=== PATIENT | male | born 1980 | race Caucasian/White ===

== ENCOUNTER 2016-07-01 09:23 | Emergency (ER) | payer OTHER ==
[2016-07-01 10:47] LABS: Hematocrit 50 % (42-52); Hemoglobin 17.3 g/dl (14.0-18.0); Mean Corpuscular HGB Conc 34 g/dl (31-36); Mean Corpuscular Hemoglobin 32 pg (27-31); Mean Corpuscular Volume 92 fL (80-94); Mean Platelet Volume 7 um3 (7.4-10.4); Red Blood Count 5.49 10^6/ul (4.0-5.4); Red Cell Distribution Width 13 % (10.5-15); White Blood Count 8.8 10^3/ul (3.5-10.8)
[2016-07-01 10:50] LABS: Urine Bilirubin Negative (Negative); Urine Glucose Negative (Negative); Urine Nitrite Negative (Negative)
[2016-07-01 11:03] LABS: Albumin 4.2 g/dL (3.2-5.2); BUN/Creatinine Ratio 12.5 (8-20); Calcium 9.8 mg/dL (8.6-10.3); EGFR African American 126.7 (>60); EGFR Non-African American 98.6 (>60); Potassium 4.3 mmol/L (3.5-5.0); Total Bilirubin 1.2 mg/dL (0.2-1.0); Total Protein 7.2 g/dL (6.4-8.9)
[2016-07-01 12:04] LABS: C Reactive Protein 2.99 mg/L (< 5.00); Magnesium 1.8 mg/dL (1.9-2.7)
[2016-07-01 12:35] VITALS: BP 118/54
--- NOTE | 2016-07-01 17:36 | ED ---
luis a Gimenez Timothy, scribed for Norman Snow MD on 07/01/16 at 1010 . Neurological HPI - HPI Summary HPI Summary: Lexa Lugo is a 36 yo male presenting to [facility] with disorientation. Pt woke at [id number] and "felt intoxicated" with disorientation. He states he would forget what he was doing and the reason he was doing it. He states he has a Hx of similar Sx over the past year, but not to the magnitude he felt this morning. He is not in any current pain. His Sx are not aggravated by changes in position, and he does not feel like the room is spinning. At 1000 today he states his Sx have almost completely resolved. He saw his PCP for these Sx 5 months ago, but never had a full work up. His MHx includes seizures, testicular CA, chronic right shoulder pain, anxiety, panic disorder, tobacco use. - History of Current Complaint Chief Complaint: EDDizziness Stated Complaint: GENERAL ILLNESS Time Seen by Provider: 07/01/16 09:57 Hx Obtained From: Patient Onset/Duration: Sudden Onset, Resolved Timing: Constant Onset Severity: Moderate Current Severity: Moderate Pain Intensity: 0 Pain Scale Used: 0-10 Numeric Character: Other: - disoriented Aggravating: Nothing Alleviating: Spontanious Resolution - Allergy/Home Medications Allergies/Adverse Reactions: Allergies Allergy/AdvReac Type Severity Reaction Status Date / Time No Known Allergies Allergy Verified 07/27/15 09:16 Home Medications: Home Medications Alprazolam 0.5 mg PO BID 07/01/16 [History Confirmed 07/01/16] Oxycodone HCl 5 mg PO TID 07/01/16 [History Confirmed 07/01/16] PMH/Surg Hx/FS Hx/Imm Hx Endocrine/Hematology History: Denies: Hx Anticoagulant Therapy, Hx Diabetes, Hx Thyroid Disease Cardiovascular History: Denies: Hx Congestive Heart Failure, Hx Deep Vein Thrombosis, Hx Hypertension , Hx Myocardial Infarction, Hx Pacemaker/ICD Respiratory History: Denies: Hx Asthma, Hx Chronic Obstructive Pulmonary Disease (COPD), Hx Lung Cancer, Hx Pneumonia, Hx Pulmonary Embolism GI History: Denies: Hx Gall Bladder Disease, Hx Gastrointestinal Bleed, Hx Ulcer, Hx Urosepsis History: Denies: Hx Kidney Stones, Hx Renal Disease Sensory History: Denies: Hx Hearing Aid Neurological History: Reports: Hx Seizures - since age 15. Denies: Hx Dementia, Hx Migraine, Hx Transient Ischemic Attacks (TIA) Psychiatric History: Reports: Hx Anxiety Denies: Hx Depression, Hx Panic Disorder, Hx Schizophrenia, Hx Bipolar Disorder - Cancer History Cancer Type, Location and Year: TESTICULAR CANCER 2005 - Surgical History Surgery Procedure, Year, 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 Right shoulder surgery Dec 2014 - Immunization History Date of Tetanus Vaccine: UTD Date of Influenza Vaccine: NO Infectious Disease History: No Infectious Disease History: Denies: Hx Clostridium Difficile, Hx Hepatitis, Hx Human Immunodeficiency Virus (HIV), Hx of Known/Suspected MRSA, Hx Shingles, Hx Tuberculosis, Hx Known/ Suspected VRE, Hx Known/Suspected VRSA, History Other Infectious Disease, Traveled Outside the [place] in Last 30 Days - Family History Known Family History: Positive: Hypertension Negative: Cardiac Disease, Diabetes - Social History Alcohol Use: Occasionally Substance Use Type: Reports: None Smoking Status (MU): Current Every Day Smoker Type: Cigarettes Amount Used/How Often: socially Have You Smoked in the Last Year: Yes Review of Systems Constitutional: Negative Eyes: Negative ENT: Negative Cardiovascular: Negative Respiratory: Negative Gastrointestinal: Negative Genitourinary: Negative Musculoskeletal: Negative Skin: Negative Neurological: Other - disorientation Psychological: Normal All Other Systems Reviewed And Are Negative: Yes Physical Exam - Summary Physical Exam Summary: The patient is well-nourished in no acute distress and in no acute pain. The skin is warm and dry and skin color reflects adequate perfusion. HEENT: The head is normocephalic and atraumatic. The pupils are equal and reactive. The conjunctivae are clear and without drainage. Nares are patent and without drainage. Mouth reveals moist mucous membranes and the throat is without erythema and exudate. No enlarged thyroid. The external ears are intact. The ear canals are patent and without drainage. The tympanic membranes are intact. Neck is supple with full range of motion and non-tender. There are no carotid bruits. There is no neck vein distension. Respiratory: Chest is non-tender. Lungs are clear to auscultation and breath sounds are symmetrical and equal. Cardiovascular: Hear is regular rate and rhythm. There is no murmur or rub auscultated. There is no peripheral edema and pulses are symmetrical and equal. Abdomen: The abdomen is soft and non-tender. There are normal bowel sounds heard in all four quadrants and there is no organomegaly palpated. Musculoskeletal: There is no back pain noted. Extremities are non-tender with full range of motion. There is good capillary refill. There is no peripheral edema or calf tenderness elicited. Neurological: Patient is alert and oriented to person, place and time. The patient has symmetrical motor strength in all four extremities. Cranial nerves are grossly intact. Deep tendon reflexes are symmetrical and equal in all four extremities. Psychiatric: The patient has an appropriate affect and does not exhibit any anxiety or depression. Triage Information Reviewed: Yes Vital Signs On Initial Exam: Initial Vitals Temp Pulse Resp BP Pulse Ox 97.7 F 69 20 156/90 94 07/01/16 09:29 07/01/16 09:29 07/01/16 09:29 07/01/16 09:29 07/01/16 09:29 Vital Signs Reviewed: Yes - [place] Coma Scale Coma Scale Total: 15 Diagnostics - Vital Signs Vital Signs Temp Pulse Resp BP Pulse Ox 07/01/16 09:29 97.7 F 69 20 156/90 94 - Laboratory Lab Results: Lab Results 07/01/16 07/01/16 07/01/16 Range/Units 10:27 10:27 10:27 WBC 8.8 (3.5-10.8) 10^3/ul RBC 5.49 H (4.0-5.4) 10^6/ul Hgb 17.3 (14.0-18.0) g/dl Hct 50 (42-52) % MCV 92 (80-94) fL MCH 32 H (27-31) pg MCHC 34 (31-36) g/dl RDW 13 (10.5-15) % Plt Count 217 (150-450) 10^3/ul MPV 7 L (7.4-10.4) um3 Neut % (Auto) 66.1 (38-83) % Lymph % (Auto) 23.8 L (25-47) % [place] % (Auto) 8.7 (1-9) % Eos % (Auto) 0.8 (0-6) % Baso % (Auto) 0.6 (0-2) % Absolute Neuts (auto) 5.8 (1.5-7.7) 10^3/ul Absolute Lymphs (auto) 2.1 (1.0-4.8) 10^3/ul Absolute Monos (auto) 0.8 (0-0.8) 10^3/ul Absolute Eos (auto) 0.1 (0-0.6) 10^3/ul Absolute Basos (auto) 0.1 (0-0.2) 10^3/ul Absolute Nucleated RBC 0.01 10^3/ul Nucleated RBC % 0.1 Sodium 137 (133-145) mmol/L Potassium 4.3 (3.5-5.0) mmol/L Chloride 102 (101-111) mmol/L Carbon Dioxide 27 (22-32) mmol/L Anion Gap 8 (2-11) mmol/L BUN 11 (6-24) mg/dL Creatinine 0.88 (0.67-1.17) mg/dL Est GFR ( Amer) 126.7 (>60) Est GFR (Non-Af Amer) 98.6 (>60) BUN/Creatinine Ratio 12.5 (8-20) Glucose 87 (70-100) mg/dL Calcium 9.8 (8.6-10.3) mg/dL Magnesium 1.8 L (1.9-2.7) mg/dL Total Bilirubin 1.20 H (0.2-1.0) mg/dL AST 23 (13-39) U/L ALT 29 (7-52) U/L Alkaline Phosphatase 48 (34-104) U/L C-Reactive Protein 2.99 (< 5.00) mg/L Total Protein 7.2 (6.4-8.9) g/dL Albumin 4.2 (3.2-5.2) g/dL Globulin 3.0 (2-4) g/dL Albumin/Globulin Ratio 1.4 (1-3) TSH 1.00 (0.34-5.60) mcIU/mL Urine Color Straw Urine Appearance Clear Urine pH 6.0 (5-9) Ur Specific Gilbert 1.004 L (1.010-1.030) Urine Protein Negative (Negative) Urine Ketones Negative (Negative) Urine Blood Negative (Negative) Urine Nitrate Negative (Negative) Urine Bilirubin Negative (Negative) Urine Urobilinogen Negative (Negative) Ur Leukocyte Esterase Negative (Negative) Urine Glucose Negative (Negative) Valproic Acid 71.0 (50-100) mcg/mL Result Diagrams: 07/01/16 10:27 07/01/16 10:27 Lab Statement: Any lab studies that have been ordered have been reviewed, and results considered in the medical decision making process. Re-Evaluation - Re-Evaluation First Eval Re-Evaluation Time: 12:42 Change: Unchanged Comment: Pt is aware of current course of Tx, particularly follow up involving a glucose tolerance test. Course/Dx - Course Assessment/Plan: Lexa Lugo is a 36 yo male presenting to [facility] with disorientation as of 0730 this morning, resolved by 1000, with a Hx of similar Sx over the past year, not as bad as this morning. Pt was counseled that his Sx could be due in part to his high blood pressure. Note his BP is 156/90 in room. Pt will receieve a 2 hour glucose tolerance test and a fasting lipid profile. After clinical examination and review of his lab studies, he will be discharged with out-patient follow up with a Dx of confusion and disorientation with appropriate instructions. - Differential Dx Differential Diagnoses Neuro: Positive: Hypertension, Hypoglycemia, Metabolic Abnormality, Other - confusion and disorientation - Diagnoses Provider Diagnoses: Confusion and disorientation Discharge - Discharge Plan Condition: Stable Disposition: HOME Patient Education Materials: Near Syncope (ED) Referrals: Gabo Smith MD [Primary Care Provider] - 2 Days Additional Instructions: Please follow up with the lab as discussed earlier. You will have appropriate prescriptions for your glucose tolerance test and fasting lipid profile. The number you should call is [phone]. We also recommend you follow up with your primary care physician. Return to the emergency department with any new or recurring symptoms. The documentation as recorded by the luis a busch Timothy accurately reflects the service I personally performed and the decisions made by me, Norman Snow MD.
== END 2016-07-01 12:57 | disposition home or self-care (01) ==
LOC: ED 09:23
DX: R41.0 Disorientation, unspecified (principal)
CPT/HCPCS: 36415; 80053; 80164; 81003; 83735; 84443; 85025; 86140; 99283

== ENCOUNTER 2016-12-22 08:31 | Emergency (ER) | payer OTHER ==
[2016-12-22 08:41] VITALS: BP 139/84
[2016-12-22] MEDS ORDERED: Ketorolac INJ* 60 MG/2 ML VIAL IM ONE (08:52)
--- NOTE | 2016-12-22 09:04 | UC ---
Dental HPI - HPI Summary HPI Summary: Pt presents with c/o sudden onset right lower jaw/tooth pain and swelling denies injury or trauma. Also, c/o sudden onset low back pain, muscle spasm both c/o began two days ago. denies injury, trauma, fever, chills numbness, - History of Current Complaint Chief Complaint: UCDentalProblem Stated Complaint: TOOTH/GUM PAIN Time Seen by Provider: 12/22/16 08:34 Hx Obtained From: Patient Onset/Duration: Sudden Onset, Lasting Days - 2 Severity: Moderate Aggravating Factor(s): Chewing Related History: Swelling - Allergies/Home Medications Allergies/Adverse Reactions: Allergies Allergy/AdvReac Type Severity Reaction Status Date / Time No Known Allergies Allergy Verified 12/22/16 08:41 Home Medications: Home Medications amLODIPine TAB* [Norvasc 5 mg TAB*] 5 mg PO DAILY 12/22/16 [History Confirmed ] tiZANidine TAB* [Zanaflex TAB*] 2 mg PO DAILY 12/22/16 [History Confirmed ] PMH/Surg Hx/FS Hx/Imm Hx Previously Healthy: Yes Other History Of: Negative For: HIV, Hepatitis B, Hepatitis C, Anticoagulant Therapy - Surgical History Surgical History: Yes Surgery Procedure, Year, 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 Right shoulder surgery Dec 2014 - Family History Known Family History: Positive: None, Hypertension Negative: Cardiac Disease, Diabetes - Social History Occupation: Employed Full-time Lives: With Family Alcohol Use: Occasionally Substance Use Type: None Smoking Status (MU): Current Every Day Smoker Type: Cigarettes Amount Used/How Often: socially Have You Smoked in the Last Year: Yes - Immunization History Most Recent Influenza Vaccination: season Review of Systems Constitutional: Negative Skin: Negative Eyes: Negative ENT: Dental Pain Respiratory: Negative Cardiovascular: Negative Gastrointestinal: Negative Genitourinary: Negative Motor: Decreased ROM - low back Neurovascular: Negative Musculoskeletal: Decreased ROM - low back, Myalgia - low back Neurological: Negative Psychological: Negative Is Patient Immunocompromised?: No All Other Systems Reviewed And Are Negative: Yes Physical Exam Triage Information Reviewed: Yes Appearance: Pain Distress Vital Signs: Initial Vital Signs Temp 98.3 F 12/22/16 08:34 Pulse 80 12/22/16 08:34 Resp 16 12/22/16 08:34 BP 139/84 12/22/16 08:34 Pulse Ox 98 12/22/16 08:34 Vital Signs Reviewed: Yes Eye Exam: Normal ENT Exam: Normal Dental Exam: Other - right lower molar/wisdom tooth Dental: Positive: Abscess @ Neck exam: Normal Respiratory Exam: Normal Cardiovascular Exam: Normal Musculoskeletal Exam: Other Musculoskeletal: Positive: ROM Limited @ - low back Neurological Exam: Normal Psychological Exam: Normal Skin Exam: Normal Dental Complaint Course/Dx - Differential Dx/Diagnosis Differential Diagnosis/Dx: Dental Abscess, Other - low back pain Provider Diagnoses: low back pain/spasm. dental abscess Discharge - Discharge Plan Condition: Stable Disposition: HOME Prescriptions: Ibuprofen TAB* [Motrin TAB* 800 MG] 800 mg PO Q8H PRN #21 tab PRN Reason: Pain predniSONE TAB* [Deltasone TAB*] 30 mg PO DAILY #9 tab Patient Education Materials: Dental Abscess (ED), Acute Low Back Pain (ED) Referrals: Gabo Smith MD [Primary Care Provider] - If Needed
== END 2016-12-22 09:09 | disposition home or self-care (01) ==
LOC: UCCORT 08:31
DX: K04.7 Periapical abscess without sinus (principal); M62.830 Muscle spasm of back; F17.210 Nicotine dependence, cigarettes, uncomplicated
CPT/HCPCS: 96372; 99212; G0463; J1885

== ENCOUNTER 2017-01-06 16:34 | Emergency (ER) | payer OTHER ==
[2017-01-06 16:44] VITALS: BP 151/80
--- NOTE | 2017-01-06 16:54 | UC ---
Back Pain HPI - HPI Summary HPI Summary: 36 yo male with the onset of LBP > 1 week ago no relief with motrin or zanaflex or toradol best when he hyperextends back no sciatica no bowel or bladder dysfunction he has had testicular CA - History of Current Complaint Chief Complaint: UCBackPain Stated Complaint: BACK PAIN Time Seen by Provider: 01/06/17 16:53 Hx Obtained From: Patient Onset/Duration: Sudden Onset, Lasting Days Timing: Constant Severity Initially: Severe Severity Currently: Severe Pain Intensity: 8 Pain Scale Used: 0-10 Numeric Back Pain: Is Diffuse Character: Dull, Aching, Throbbing, Spasmodic, Stiffness Aggravating Factor(s): Movement, Bending Alleviating Factor(s): Position Associated Signs And Symptoms: Positive: Negative Related History: Similar Episode Dx As - Allergies/Home Medications Allergies/Adverse Reactions: Allergies Allergy/AdvReac Type Severity Reaction Status Date / Time No Known Allergies Allergy Verified 01/06/17 16:44 Home Medications: Home Medications Famotidine TAB* [Pepcid 20 MG TAB*] 20 mg PO DAILY 01/06/17 [History Confirmed 01/06/17] PMH/Surg Hx/FS Hx/Imm Hx Previously Healthy: Yes Cardiovascular History: Hypertension Other History Of: Negative For: HIV, Hepatitis B, Hepatitis C, Anticoagulant Therapy - Surgical History Surgical History: Yes Surgery Procedure, Year, 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 Right shoulder surgery Dec 2014 - Family History Known Family History: Positive: None, Hypertension Negative: Cardiac Disease, Diabetes - Social History Alcohol Use: None Substance Use Type: None Smoking Status (MU): Current Every Day Smoker Type: Cigarettes Amount Used/How Often: socially Have You Smoked in the Last Year: Yes - Immunization History Most Recent Influenza Vaccination: season Review of Systems Constitutional: Negative Skin: Negative Eyes: Negative ENT: Negative Respiratory: Negative Cardiovascular: Negative Gastrointestinal: Negative Genitourinary: Negative Motor: Negative Neurovascular: Negative Musculoskeletal: Myalgia Neurological: Negative Psychological: Negative Is Patient Immunocompromised?: No All Other Systems Reviewed And Are Negative: Yes Physical Exam Triage Information Reviewed: Yes Appearance: Well-Appearing, Well-Nourished, Pain Distress Vital Signs: Initial Vital Signs Temp 98.0 F 01/06/17 16:37 Pulse 78 01/06/17 16:37 Resp 20 11/13/17 16:37 BP 151/80 01/06/17 16:37 Pulse Ox 98 01/06/17 16:37 Vital Signs Reviewed: Yes Eyes: Positive: Conjunctiva Clear ENT: Positive: Hearing grossly normal. Negative: Nasal congestion, Nasal drainage, Trismus, Muffled voice Neck: Positive: Supple, Nontender Respiratory: Positive: Lungs clear, Normal breath sounds, No respiratory distress Cardiovascular: Positive: RRR, No Murmur Musculoskeletal: Positive: ROM Intact, No Edema Neurological: Positive: Alert, Other: - (-) SLR, DTRs brisk and symmetrical Psychological Exam: Normal Psychological: Positive: Normal Response To Family Skin Exam: Normal Diagnostics - Radiology No standard instances Xray Interpretation: Positive (See Comments) - L5-S1 degenerative spondylosis and facet joint osteoarthritis Radiology Interpretation Completed By: Radiologist Back Pain Course/Dx - Differential Dx/Diagnosis Provider Diagnoses: acute lumbar myofascial strain/spasm Discharge - Discharge Plan Condition: Stable Disposition: HOME Prescriptions: Cyclobenzaprine TAB* [Flexeril TAB*] 5 mg PO TID PRN #12 tab PRN Reason: Spasms Naproxen Sodium [Naproxen Sodium 500 MG TAB] 500 mg PO BID PRN #30 tab PRN Reason: Pain oxyCODONE/Acetamin 5/325 MG* [Percocet 5/325 TAB*] 1 tab PO Q4H PRN #10 tab MDD 2 PRN Reason: Pain Patient Education Materials: Low Back Strain (ED) Referrals: Gabo Smith MD [Primary Care Provider] - 4 Days Additional Instructions: pt consult don't take muscle relaxer or narcotic and drive
--- NOTE | 2017-01-06 17:58 | RAD ---
Indication: 1 week low back pain following standing up. Decreased range of motion. History of testicular cancer. Comparison: November 20, 2007 CT. Technique: AP, lateral, and oblique views lumbar sacral spine. Report: Alignment is anatomic. No cortical disruption or trabecular impaction to indicate a vertebral body fracture. No suspicious focal osseous lesions evident. Small Schmorl node endplate herniation at the inferior endplate of L4 without change. Oblique views without evidence for spondylolysis. Moderate L5-S1 disc space narrowing with interval worsening. Facet joint osteoarthritis at the same level. Unremarkable symmetric paraspinal soft tissue contours accounting for hypertrophied skeletal musculature based on correlation with prior CT. IMPRESSION: L5-S1 degenerative spondylosis and facet joint osteoarthritis with worsening compared with the 2008 CT.
== END 2017-01-06 18:29 | disposition home or self-care (01) ==
LOC: UCEAST 16:34
DX: S39.012A Strain of muscle, fascia and tendon of lower back, initial encounter (principal); M62.830 Muscle spasm of back; M47.817 Spondylosis without myelopathy or radiculopathy, lumbosacral region; X58.XXXA Exposure to other specified factors, initial encounter; Y92.9 Unspecified place or not applicable; Z85.47 Personal history of malignant neoplasm of testis; I10 Essential (primary) hypertension; F17.210 Nicotine dependence, cigarettes, uncomplicated
CPT/HCPCS: 72110; 99212; G0463

== ENCOUNTER 2017-01-10 08:29 | Emergency (ER) | payer OTHER ==
[2017-01-10 08:36] VITALS: BP 152/84
[2017-01-10] MEDS ORDERED: Albuterol HFA INHALER* 8 gm MDI INH ONE (08:47)
--- NOTE | 2017-01-10 08:47 | UC ---
"Back Pain HPI - HPI Summary HPI Summary: 36 yo male with the onset of LBP > 2 week ago relief with percocet/flexerril best when he hyperextends back no sciatica no bowel or bladder dysfunction he has had testicular CA Went to PT and found it beneficial unable to get in to see Dr. Hogue this wk request more percocet also with cough x 2weeks worsening wheezes - History of Current Complaint Stated Complaint: BACK PAIN Time Seen by Provider: 01/10/17 08:32 Hx Obtained From: Patient Onset/Duration: Gradual Onset, Lasting Weeks Timing: Constant Severity Initially: Severe Severity Currently: Moderate Pain Intensity: 6 Pain Scale Used: 0-10 Numeric Character: Throbbing, Spasmodic, Stiffness Aggravating Factor(s): Movement, Bending Alleviating Factor(s): Rest, Other - Rx meds Associated Signs And Symptoms: Positive: Negative - Allergies/Home Medications Allergies/Adverse Reactions: Allergies Allergy/AdvReac Type Severity Reaction Status Date / Time No Known Allergies Allergy Verified 01/10/17 08:36 PMH/Surg Hx/FS Hx/Imm Hx Previously Healthy: Yes Neurological History: Seizures Psychological History: Anxiety Cancer History: Other Other Cancer History: testicular Other History Of: Negative For: HIV, Hepatitis B, Hepatitis C, Anticoagulant Therapy - Surgical History Surgical History: Yes Surgery Procedure, Year, 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 Right shoulder surgery Dec 2014 - Family History Known Family History: Positive: Hypertension Negative: Cardiac Disease, Diabetes - Social History Alcohol Use: None Substance Use Type: None Smoking Status (MU): Heavy Every Day Tobacco Smoker Type: Cigarettes Amount Used/How Often: 1/2ppd Have You Smoked in the Last Year: Yes Household Exposure Type: Cigarettes - Immunization History Most Recent Influenza Vaccination: Not UTD Review of Systems Constitutional: Negative Skin: Negative Eyes: Negative ENT: Negative Respiratory: Cough Cardiovascular: Negative Gastrointestinal: Negative Genitourinary: Negative Motor: Negative Neurovascular: Negative Musculoskeletal: Myalgia Neurological: Negative Psychological: Negative Is Patient Immunocompromised?: No All Other Systems Reviewed And Are Negative: Yes Physical Exam Triage Information Reviewed: Yes Appearance: Well-Appearing, No Pain Distress, Well-Nourished Vital Signs: Initial Vital Signs Temp 97.3 F 01/10/17 08:31 Pulse 83 01/10/17 08:31 Resp 14 01/10/17 08:31 BP 152/84 01/10/17 08:31 Pulse Ox 99 01/10/17 08:31 Eyes: Positive: Conjunctiva Clear ENT: Positive: Hearing grossly normal, TMs normal, Uvula midline. 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 acute bronchitis with bronchospasm Discharge - Discharge Plan Condition: Stable Disposition: HOME Prescriptions: Amoxicillin PO (*) [Amoxicillin 875 MG (*)] 875 mg PO BID #14 tab oxyCODONE/Acetamin 5/325 MG* [Percocet 5/325 TAB*] 1 tab PO Q4H PRN #10 tab MDD 2 PRN Reason: Pain - Back Prednisone [Deltasone] 40 mg PO DAILY #10 tab Patient Education Materials: Acute Bronchitis (ED), Low Back Strain (ED), Bronchospasm (ED) Referrals: Gabo Smith MD [Primary Care Provider] - As Soon As Possible Additional Instructions: continue PT hold off on naproxen while talking prednisone may resume naproxen if needed when you finish the prednisone don't take narcotic and work or drive Images Front/Back of Body, Lg (Hawkins): 1 - bilat paraspinous muscle spasm"
== END 2017-01-10 08:59 | disposition home or self-care (01) ==
LOC: UCEAST 08:29
DX: S33.5XXA Sprain of ligaments of lumbar spine, initial encounter (principal); X58.XXXA Exposure to other specified factors, initial encounter; Y93.9 Activity, unspecified; Y92.9 Unspecified place or not applicable; Y99.9 Unspecified external cause status; J20.9 Acute bronchitis, unspecified; Z85.47 Personal history of malignant neoplasm of testis; Z72.0 Tobacco use
CPT/HCPCS: 99212; A9270-GY; G0463

== ENCOUNTER 2017-01-24 09:26 | Emergency (ER) | payer OTHER ==
[2017-01-24] MEDS ORDERED: methylPREDNISolone 125 MG* 2 ML VIAL IM ONE (11:37)
--- NOTE | 2017-01-24 11:48 | UC ---
Respiratory Complaint HPI - HPI Summary HPI Summary: GIVEN AMOXICILLIN AND PREDNISONE 01/10/17 FOR SX OF COUGH AND WHEEZE. REPORTS HIS SX IMPROVED BUT DID NOT ENTIRELY RESOLVE. SINCE THEN HE FEELS HIS SX ARE WORSE THAN BEFORE. HE HAS JUNIOR AND PRODUCTIVE COUGH. HAD SOME NAUSEA A FEW DAYS AGO BUT NONE SINCE. YESTERDAY DEVELOPED INTENSE ITCHING IN BILATERAL ARMS AND LEGS. FEELS SWOLLEN. DENIES ANY NEW MEDS OR EXPOSURES. TAKE VALPROIC ACID FOR SZ D/O. NO LABS IN YEARS. - History of Current Complaint Chief Complaint: UCGeneralIllness Stated Complaint: RESPIRATORY,SKIN COMPLAINT Time Seen by Provider: 01/24/17 11:11 Hx Obtained From: Patient Onset/Duration: Gradual Onset, Lasting Days, Still Present Timing: Constant Severity Initially: Moderate Severity Currently: Moderate Pain Intensity: 0 Pain Scale Used: 0-10 Numeric Character: Cough: Productive Aggravating Factors: Exertion Alleviating Factors: Nothing Associated Signs And Symptoms: Positive: Dyspnea, Wheezing - Allergies/Home Medications Allergies/Adverse Reactions: Allergies Allergy/AdvReac Type Severity Reaction Status Date / Time No Known Allergies Allergy Verified 01/24/17 11:02 Home Medications: Home Medications ALPRAZolam TAB* [Xanax TAB*] 0.5 mg PO BID PRN 01/24/17 [History Confirmed 01/24] Ibuprofen TAB* [Advil TAB*] 600 mg PO Q6H PRN 01/24/17 [History Confirmed ] Oxycodone W/ Acetaminophen [Oxycodone/Acetaminophen 2.5-325 mg] 1 tab PO BID 03/12 [History Confirmed 01/24/17] PMH/Surg Hx/FS Hx/Imm Hx Cardiovascular History: Hypertension GI/ History: Gastroesophageal Reflux Neurological History: Seizures Psychological History: Anxiety Other Cancer History: TESTICULAR Other History Of: Negative For: HIV, Hepatitis B, Hepatitis C, Anticoagulant Therapy - Surgical History Surgical History: Yes Surgery Procedure, Year, 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 Right shoulder surgery Dec 2014 - Family History Known Family History: Positive: Hypertension Negative: Cardiac Disease, Diabetes - Social History Alcohol Use: None Substance Use Type: None Smoking Status (MU): Heavy Every Day Tobacco Smoker Type: Cigarettes Amount Used/How Often: 1/2 PPD Length of Time of Smoking/Using Tobacco: Since Age 21 Have You Smoked in the Last Year: Yes Household Exposure Type: Cigarettes - Immunization History Most Recent Influenza Vaccination: Not the 2016/2017 Season Review of Systems Constitutional: Negative Skin: Other - ITCHING Respiratory: Shortness Of Breath, Cough, Other - WHEEZE Cardiovascular: Negative Gastrointestinal: Nausea All Other Systems Reviewed And Are Negative: Yes Physical Exam Triage Information Reviewed: Yes Appearance: Well-Appearing, No Pain Distress, Well-Nourished Vital Signs: Initial Vital Signs Temp 98.4 F 01/24/17 11:00 Pulse 104 01/24/17 11:00 Resp 18 01/24/17 11:00 BP 154/97 01/24/17 11:00 Pulse Ox 97 01/24/17 11:00 Vital Signs Reviewed: Yes Eyes: Positive: Conjunctiva Clear ENT: Positive: Hearing grossly normal Neck: Positive: Supple, Nontender, No Lymphadenopathy Respiratory: Positive: No respiratory distress, No accessory muscle use, Wheezing - DIFFUSE Cardiovascular: Positive: Tachycardia Abdomen Description: Positive: Soft Musculoskeletal: Positive: No Edema Neurological: Positive: Alert Psychological: Positive: Age Appropriate Behavior Skin: Positive: Other - ACTIVELY SCRATCHING AT ARMS. Negative: rashes UC Diagnostic Evaluation - Laboratory O2 Sat by Pulse Oximetry: 97 - Radiology Xray Interpretation: No Acute Changes Radiology Interpretation Completed By: Radiologist - EKG Cardiac Rate: Tachycardia Cardiac Rhythm: Sinus: Normal Ectopy: None ST Segment: Non-Specific Re-Evaluation - Re-Evaluation First Eval Re-Evaluation Time: 12:30 - ITCHING IS MUCH IMPROVED AFTER SOLUMEDROL. Change: Improved Second Eval Re-Evaluation Time: 13:15 - FEELS SLIGHTLY BETTER AFTER NEB Change: Improved Respiratory Course/Dx - Course Course Of Treatment: O2SAT 93% WITH AMBULATION - Differential Dx/Diagnosis Provider Diagnoses: 1. ACUTE BRONCHITIS WITH BRONCHOSPASM. 2. PRURITUS Discharge - Discharge Plan Condition: Stable Disposition: HOME Prescriptions: Albuterol 2.5MG/3ML (0.083%)* [Ventolin 2.5 MG/3 ML NEB.LINDSEY*] 2.5 mg INH Q4H PRN #1 box PRN Reason: Wheezing Azithromycin [Azithromycin 500 MG TAB] 500 mg PO DAILY #5 tab predniSONE TAB* [Deltasone TAB*] 50 mg PO DAILY #5 tab Respiratory Therapy Supplies [Nebulizer Kit/Tubing/Mout] 1 kit .SEE ORDER . DIRECTED #1 kit Patient Education Materials: Acute Bronchitis (ED), Bronchospasm (ED), Itchy Skin (ED) Referrals: Gabo Smith MD [Primary Care Provider] - 1 Week Additional Instructions: LABS DRAWN TODAY FOR MONITORING - BLOOD COUNT, METABOLIC PANEL, VALPROIC ACID. FOLLOW-UP WITH DR. SMITH. RECOMMEND PCP FOLLOW-UP ALSO FOR RECHECK OF OXYGEN LEVELS AND REASSESSMENT OF LUNGS WITHIN A WEEK. GO TO THE ER WITHOUT FAIL IF YOU DEVELOP WORSENING SHORTNESS OF BREATH, CHEST PAIN, NAUSEA, OR ANY OTHER CONCERNING SYMPTOMS. CHEST XRAY TODAY UNREMARKABLE. TAKE ANTIBIOTICS AND PREDNISONE PRESCRIBED. ALBUTEROL VIA NEBULIZER TWICE DAILY AND EVERY 4 HRS NEEDED.
--- NOTE | 2017-01-24 12:16 | RAD ---
Indication: Shortness of breath, cough. Comparison: July 14, 2008 Technique: Dual energy PA chest Report: No pulmonary infiltrate, focal pulmonary lesion, pleural effusion, or thorax. The heart, pulmonary vasculature, and mediastinal contours are normal. IMPRESSION: No evidence for pneumonia. No evidence for acute intrathoracic disease.
[2017-01-24] MEDS ORDERED: Albuterol 2.5 MG/3 ML NEB.SOL* (0.083%) INH ONE (12:29)
[2017-01-24 12:52] VITALS: BP 136/79
[2017-01-24 18:54] LABS: Hematocrit 53 % (42-52); Hemoglobin 18.5 g/dl (14.0-18.0); Mean Corpuscular HGB Conc 35 g/dl (31-36); Mean Corpuscular Hemoglobin 32 pg (27-31); Mean Corpuscular Volume 92 fL (80-94); Mean Platelet Volume 8 um3 (7.4-10.4); Red Cell Distribution Width 13 % (10.5-15); White Blood Count 12.5 10^3/ul (3.5-10.8)
[2017-01-24 18:55] LABS: Add Diff/Slide Review? Slide Review Added; Comments Flag Yes
[2017-01-24 19:29] LABS: Albumin 4.6 g/dL (3.2-5.2); BUN/Creatinine Ratio 13.8 (8-20); Calcium 9.7 mg/dL (8.6-10.3); EGFR African American 128.4 (>60); EGFR Non-African American 99.9 (>60); Globulin 2.7 g/dL (2-4); Potassium 3.9 mmol/L (3.5-5.0); Total Bilirubin 1.5 mg/dL (0.2-1.0); Total Protein 7.3 g/dL (6.4-8.9)
--- NOTE | 2017-01-25 14:11 | UC ---
Progress - Progress Note Progress Note: Pt seen and treated for resp illness & itching w/ zpack and prednisone. -labs drawn show elev WBCs at 12.5 and elev hgb 18.5. -gluc elevatated at 118 if he was fasting -total bilirunbin slightly elevated at 1.5 (direct 7 indirect not drawn). -needs to f/u with PCP for f/u of these labs -valproic acid level ordered but no results. per note, has taken w/o levels checked in yrs -needs to f/u with neuro for montoring. Re-Evaluation - Re-Evaluation First Eval Re-Evaluation Time: 12:30 - ITCHING IS MUCH IMPROVED AFTER SOLUMEDROL. Change: Improved Second Eval Re-Evaluation Time: 13:15 - FEELS SLIGHTLY BETTER AFTER NEB Change: Improved
[2017-01-27 17:00] LABS: Free Valproic Acid <3 mcg/mL (5 - 25); Total Valproic Acid 14 mcg/mL (50 - 125)
== END 2017-01-24 13:51 | disposition home or self-care (01) ==
LOC: UCCORT 09:26
DX: J20.9 Acute bronchitis, unspecified (principal); L29.9 Pruritus, unspecified; R00.0 Tachycardia, unspecified; I10 Essential (primary) hypertension; K21.9 Gastro-esophageal reflux disease without esophagitis; R56.9 Unspecified convulsions; F41.9 Anxiety disorder, unspecified; Z85.47 Personal history of malignant neoplasm of testis; F17.210 Nicotine dependence, cigarettes, uncomplicated
CPT/HCPCS: 36415; 71020; 80053; 80164; 80165; 85025; 93005; 96372; 99213; G0463; G0480; J2930

== ENCOUNTER 2017-03-09 15:42 | Emergency (ER) | payer OTHER ==
[2017-03-09 15:59] VITALS: BP 145/91
--- NOTE | 2017-03-09 16:41 | UC ---
Back Pain HPI - HPI Summary HPI Summary: Low back pain since yesterday. Was shoveling snow. Has injured previously this winter. Has seen the chiropractor but improvements have been short lived. Has been doing PT. - History of Current Complaint Chief Complaint: UCBackPain Stated Complaint: BACK PAIN Time Seen by Provider: 03/09/17 16:33 Hx Obtained From: Patient Onset/Duration: Sudden Onset, Lasting Days - 1, Still Present Timing: Intermittent Severity Initially: Moderate Severity Currently: None - while lying down in extension. Back Pain: Is Discrete @ - Low back and right SI. Character: Spasmodic Aggravating Factor(s): Lifting, Bending, Walking Alleviating Factor(s): Rest, Position - in extension. 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 Right shoulder surgery Dec 2014 - Family History Known Family History: Positive: Hypertension Negative: Cardiac Disease, Diabetes - Social History Occupation: Employed Full-time Lives: With Family Alcohol Use: None Substance Use Type: None Smoking Status (MU): Heavy Every Day Tobacco Smoker Type: Cigarettes Amount Used/How Often: 1/2 PPD Length of Time of Smoking/Using Tobacco: Since Age 21 Have You Smoked in the Last Year: Yes Household Exposure Type: Cigarettes Cessation Counseling: Patient Advised to Stop - Immunization History Most Recent Influenza Vaccination: Not the 2017/2017 Season Review of Systems Musculoskeletal: Myalgia - back pain Is Patient Immunocompromised?: No All Other Systems Reviewed And Are Negative: Yes Physical Exam Triage Information Reviewed: Yes Appearance: Well-Appearing, Well-Nourished, Pain Distress - moderate Vital Signs: Initial Vital Signs Temp 97.0 F 03/09/17 15:55 Pulse 105 03/09/17 15:55 Resp 18 03/09/17 15:55 BP 145/91 03/09/17 15:55 Pulse Ox 98 01/14/18 15:55 Vital Signs Reviewed: Yes Eyes: Positive: Conjunctiva Clear Neck exam: Normal Respiratory Exam: Normal Cardiovascular Exam: Normal Musculoskeletal: Positive: ROM Limited @ - lumbar and thoracic spine, Other: - tenderness over the right SI and sacrum. Neurological Exam: Normal Psychological Exam: Normal Skin Exam: Normal Back Pain Course/Dx - Differential Dx/Diagnosis Differential Diagnosis/HQI/PQRI: Arthritis, Herniated Disc, Strain, Sprain Provider Diagnoses: Acute low back pain. Sacroiliitis. Hypertension Discharge - Discharge Plan Condition: Stable Disposition: HOME Prescriptions: Oxycodone W/ Acetaminophen [Endocet 5-325 mg] 1 tab PO Q4HR PRN #10 tab MDD 6 PRN Reason: Pain - Back Patient Education Materials: Acute Low Back Pain (ED) Referrals: Gabo Smith MD [Primary Care Provider] - Additional Instructions: Smoking Cessation Tricks. 1. Cut down by 1 cigarette per day every 2-3 days. Write the number of smokes for that day on the calendar. 2. Identify triggers to smoking: after meals, on the phone, in the car, with coffee, on breaks at work, etc. 3. Formulate a plan with a behavior to replace the smoking. Fireballs in the car , doodle pad on the phone, flavored creamer for the coffee, go for a walk after a meal or on break at work. 4. For stress smokes do deep breathing relaxation. Breath deep in through the nose hold the breath in for a few seconds then breath out slowly through the mouth. For Muscle Spasms: 1. Hydration. 2. Vitamin D3 5000iu capsules 3 all at once once a week. 3. Milk 16 oz a day. 4. Magnesium 400 or 500mg tablets once or twice a day. For the back pain:Yoga. Youtube search "beginning yoga for back pain. Do the yoga 3 times a week. See the chiropractor tomorrow.
[2017-03-09] MEDS ORDERED: HYDROcodone/ACETAMIN 5-325 MG* 1 TAB PO ONE (17:07)
[2017-03-09] MEDS ORDERED: HYDROcodone/ACETAMIN 5-325 MG* 1 TAB ONE (17:17)
== END 2017-03-09 17:35 | disposition home or self-care (01) ==
LOC: UCCORT 15:42
DX: M54.5 Low back pain (principal); M46.1 Sacroiliitis, not elsewhere classified; I10 Essential (primary) hypertension; R56.9 Unspecified convulsions; F17.210 Nicotine dependence, cigarettes, uncomplicated
CPT/HCPCS: 99212; G0463

== ENCOUNTER 2017-03-15 11:52 | Emergency (ER) | payer OTHER ==
[2017-03-15 12:10] VITALS: BP 145/102
--- NOTE | 2017-03-15 12:30 | UC ---
Back Pain HPI - HPI Summary HPI Summary: has chronic back pain, here seeking Percocet for pain - History of Current Complaint Chief Complaint: UCBackPain Stated Complaint: LOWER BACK PAIN Time Seen by Provider: 03/15/17 12:02 Hx Obtained From: Patient Onset/Duration: Gradual Onset, Still Present Timing: Constant Severity Initially: Moderate Severity Currently: Moderate Back Pain: Is Diffuse Character: Spasmodic, Stiffness Aggravating Factor(s): Movement Alleviating Factor(s): Other - percocet and Flexeril - Allergies/Home Medications Allergies/Adverse Reactions: Allergies Allergy/AdvReac Type Severity Reaction Status Date / Time No Known Allergies Allergy Verified 03/15/17 12:04 PMH/Surg Hx/FS Hx/Imm Hx Previously Healthy: No - Chronic Pain, Anxiey, ADD Cardiovascular History: Hypertension Other History Of: Negative For: HIV, Hepatitis B, Hepatitis C, Anticoagulant Therapy - Surgical History Surgical History: Yes Surgery Procedure, Year, 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 Right shoulder surgery Dec 2014 - Family History Known Family History: Positive: Hypertension Negative: Cardiac Disease, Diabetes - Social History Occupation: Employed Full-time Lives: With Family Alcohol Use: None Substance Use Type: None Smoking Status (MU): Heavy Every Day Tobacco Smoker Type: Cigarettes, Smokeless Tobacco Amount Used/How Often: 1 Can Per Day and Occasional Cigarette Length of Time of Smoking/Using Tobacco: Since Age "late 20's" Have You Smoked in the Last Year: Yes Household Exposure Type: Cigarettes Cessation Counseling: Patient Advised to Stop - Immunization History Most Recent Influenza Vaccination: Not the 2016/2017 Season Review of Systems Constitutional: Negative Skin: Negative Eyes: Negative ENT: Negative Respiratory: Negative Cardiovascular: Negative Gastrointestinal: Negative Genitourinary: Negative Motor: Negative Neurovascular: Negative Musculoskeletal: Arthralgia - Chronic BAck Pain, Myalgia - Chronic BAck Pain Neurological: Negative Psychological: Negative Is Patient Immunocompromised?: No All Other Systems Reviewed And Are Negative: Yes Physical Exam Triage Information Reviewed: Yes Appearance: Well-Appearing, No Pain Distress, Well-Nourished Vital Signs: Initial Vital Signs Temp 97.9 F 03/15/17 12:01 Pulse 100 03/15/17 12:01 Resp 16 03/15/17 12:01 BP 145/102 03/15/17 12:01 Pulse Ox 97 03/15/17 12:01 Vital Signs Reviewed: Yes Eye Exam: Normal Eyes: Positive: Conjunctiva Clear ENT Exam: Normal ENT: Positive: Normal ENT inspection, Hearing grossly normal. Negative: Nasal congestion, Trismus, Muffled voice, Hoarse voice, Dental tenderness Dental Exam: Normal Neck exam: Normal Neck: Positive: Supple, Nontender, No Lymphadenopathy Respiratory Exam: Normal Respiratory: Positive: Chest non-tender, Lungs clear, Normal breath sounds, No respiratory distress, No accessory muscle use Cardiovascular Exam: Normal Cardiovascular: Positive: RRR, No Murmur, Pulses Normal, Brisk Capillary Refill Musculoskeletal Exam: Normal Musculoskeletal: Positive: Strength Intact, ROM Intact, No Edema Neurological Exam: Normal Neurological: Positive: Alert, Muscle Tone Normal Psychological Exam: Normal Skin Exam: Normal Back Pain Course/Dx - Course Course Of Treatment: Nsaids, Flexeril, Information for hypertension follow with pcp - Differential Dx/Diagnosis Provider Diagnoses: Chronic Back Pain, Hypertension in Poor control Discharge - Discharge Plan Condition: Stable Disposition: HOME Prescriptions: Cyclobenzaprine TAB* [Flexeril 10 MG TAB*] 10 mg PO TID PRN #15 tab PRN Reason: muscle spasm Meloxicam(NF) [Mobic(NF)] 7.5 mg PO BID #30 tab Patient Education Materials: Hypertension (ED), Chronic Back Pain (ED), Lower Back Exercises (ED) Referrals: Gabo Smith MD [Primary Care Provider] - 2 Weeks
== END 2017-03-15 12:38 | disposition home or self-care (01) ==
LOC: UCCORT 11:52
DX: M54.5 Low back pain (principal); G89.29 Other chronic pain; I10 Essential (primary) hypertension; F17.290 Nicotine dependence, other tobacco product, uncomplicated
CPT/HCPCS: 99212; G0463

== ENCOUNTER 2017-03-19 17:56 | Emergency (ER) | payer OTHER ==
[2017-03-19 18:07] VITALS: BP 150/79
--- NOTE | 2017-03-19 18:57 | UC ---
Back Pain HPI - HPI Summary HPI Summary: Pt presents with lower back pain. He tells me that this has been a chronic issue for over a year. He was seeing Dr. Lowery for pain management and receiving Oxycodone for this, but over the last 3-4 months pt stopped going because of the high cost of monthly office visits. He tells me that he went to his PCP, but his PCP is not comfortable prescribing jail narcotic pain medication and hasn't initiated this treatment with pt. In early December he came to our and was prescribed percocet for a short term, he then returned and was given another rx for percocet. Since that time he has been coming to or going to the ED for percocet for this pain. He tells me that he was here a few days ago and saw a provider that was not comfortable prescribing narcotics, but was given flexeril and mobic. He says that flexeril does help with the pain , but that "it is still there"...the mobic does nothing for his pain. Here is here today asking for percocet. Denies new injury, numbness, tingling, radiation of pain, bowel or bladder dysfunction. - History of Current Complaint Chief Complaint: UCBackPain Stated Complaint: BACK PAIN Time Seen by Provider: 03/19/17 18:22 Hx Obtained From: Patient Onset/Duration: Gradual Onset Timing: Constant Severity Initially: Moderate Severity Currently: Moderate Pain Intensity: 7 Pain Scale Used: 0-10 Numeric Aggravating Factor(s): Movement, Lifting, Bending Alleviating Factor(s): Rest, Position - Allergies/Home Medications Allergies/Adverse Reactions: Allergies Allergy/AdvReac Type Severity Reaction Status Date / Time No Known Allergies Allergy Verified 03/19/17 18:02 PMH/Surg Hx/FS Hx/Imm Hx Neurological History: Seizures Psychological History: Anxiety, Depression Other History Of: Negative For: HIV, Hepatitis B, Hepatitis C, Anticoagulant Therapy - Surgical History Surgical History: Yes Surgery Procedure, Year, 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 Right shoulder surgery Dec 2014 - Family History Known Family History: Positive: Hypertension Negative: Cardiac Disease, Diabetes - Social History Occupation: Employed Full-time Lives: With Family Alcohol Use: None Substance Use Type: None Smoking Status (MU): Heavy Every Day Tobacco Smoker Type: Cigarettes, Smokeless Tobacco Amount Used/How Often: 1 Can Per Day and Occasional Cigarette Length of Time of Smoking/Using Tobacco: Since Age "late 20's" Have You Smoked in the Last Year: Yes Household Exposure Type: Cigarettes Cessation Counseling: Counseled 3+Min - 10 Min - Immunization History Most Recent Influenza Vaccination: Not the Season Review of Systems Constitutional: Negative Skin: Negative Respiratory: Negative Cardiovascular: Negative Gastrointestinal: Negative Musculoskeletal: Other: - LBP Neurological: Negative Psychological: Negative All Other Systems Reviewed And Are Negative: Yes Physical Exam Triage Information Reviewed: Yes Appearance: Well-Appearing, No Pain Distress, Well-Nourished Vital Signs: Initial Vital Signs Temp 97.9 F 03/19/17 18:04 Pulse 94 03/19/17 18:04 Resp 18 03/19/17 18:04 BP 150/79 03/19/17 18:04 Pulse Ox 98 03/19/17 18:04 Vital Signs Reviewed: Yes Neck: Positive: Supple, No Lymphadenopathy, Other: - FROM. NTTP Respiratory: Positive: Normal breath sounds, No respiratory distress, No accessory muscle use Cardiovascular: Positive: RRR, No Murmur, Pulses Normal Musculoskeletal: Positive: Strength Intact - B/L LEs including dorsiflexion and plantar flexion, ROM Intact - B/L LEs, No Edema, Other: - Positive SLR b/l. TTP over lumbar paraspinal muscles. Neurological: Positive: Alert, Other: - Sensations intact L3-S1 b/l Psychological: Positive: Age Appropriate Behavior Skin: Negative: rashes, significant lesion(s) Back Pain Course/Dx - Course Course Of Treatment: Reference #[id number] Cierra has been rx'd Percocet in various quantities since December 2016 from 3 different providers at 3 different locations. To me, his current situation does not seem suitable for an urgent care setting and seems to be a chronic pain issue. Based on our discussion, it is my impression that he is replacing his pain management provider with Urgent Care/ED visits in hopes of finding a provider who will prescribe him percocet. I told the pt that I am not comfortable prescribing narcotic pain medication for long-term chronic pain conditions. I offered him Toradol injection, diclofenac, lidoderm patches, and voltaren gel - he declined. He asked what his options are; we discussed finding a new PCP, finding a new pain management provider, occasional caregiver, accupuncture, aquatherapy, physical therapy, neurosurgery referral, and suboxone clinics. He said he would "look around". - Differential Dx/Diagnosis Provider Diagnoses: Low back pain Discharge - Discharge Plan Condition: Stable Disposition: HOME Patient Education Materials: Muscle Spasm (ED), Core Strengthening Exercises ( GEN), Lower Back Exercises (ED) Referrals: Gabo Smith MD [Primary Care Provider] - Additional Instructions: If you develop a fever, shortness of breath, chest pain, new or worsening symptoms - please call your PCP or go to the ED. 1) Please follow up with your PCP or search for a new PCP to follow up with regarding your chronic lower back pain.
== END 2017-03-19 19:07 | disposition home or self-care (01) ==
LOC: UCEAST 17:56
DX: M54.5 Low back pain (principal); F17.210 Nicotine dependence, cigarettes, uncomplicated; F17.290 Nicotine dependence, other tobacco product, uncomplicated
CPT/HCPCS: 99211; G0463

== ENCOUNTER 2017-05-06 19:08 | Emergency (ER) | payer OTHER ==
--- NOTE | 2017-05-06 20:04 | UC ---
Dental HPI - HPI Summary HPI Summary: Pt presents reporting had a #21 pulpectomy today at [facility]. Pt states is scheduled to have a filling place next Friday. Pt states had a block placed at 930am. Pt states took 800m Motrin approx 10am. Pt states at 2pm started to have increased pain. Pt states spoke to dentist and was advised that he would not get any additional analgesia Rx so recommended come to ED or UC if pain not controlled. Pt states at 4pm took Naproxyn he had left over. States continues to have increasing pain. no other analgesia or treatments taken. Pt denies ear pain, intraoral swelling, or difficulty swallowing. pt reports has temperature sensitivity. no other complaints. Pt states has previously taken narcotic -last approx "2 months ago" for back pain from Dr. Smith Pt with a h/o HTN, GERD Pt's medications reviewed this visit. - History of Current Complaint Stated Complaint: DENTAL Time Seen by Provider: 05/06/17 19:41 Hx Obtained From: Patient Onset/Duration: Gradual Onset Severity: Moderate Pain Intensity: 7 Pain Scale Used: 0-10 Numeric - Allergies/Home Medications Allergies/Adverse Reactions: Allergies Allergy/AdvReac Type Severity Reaction Status Date / Time No Known Allergies Allergy Verified 05/06/17 19:57 Home Medications: Home Medications Naproxen TAB* [Naprosyn 250 mg TAB*] 500 mg PO Q8H PRN 05/06/17 [History Confirmed 05/06/17] PMH/Surg Hx/FS Hx/Imm Hx Previously Healthy: Yes GI/ History: Gastroesophageal Reflux Psychological History: Anxiety Other History Of: Negative For: HIV, Hepatitis B, Hepatitis C, Anticoagulant Therapy - Surgical History Surgical History: Yes Surgery Procedure, Year, 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 Lives: With Family Alcohol Use: None Substance Use Type: None Smoking Status (MU): Heavy Every Day Tobacco Smoker Type: Cigarettes, Smokeless Tobacco Amount Used/How Often: 1 Can Per Day and Occasional Cigarette Length of Time of Smoking/Using Tobacco: Since Age "late 20's" Have You Smoked in the Last Year: Yes Household Exposure Type: Cigarettes - Immunization History Most Recent Influenza Vaccination: Not the 2017/2018 Season Review of Systems Constitutional: Negative ENT: Dental Pain All Other Systems Reviewed And Are Negative: Yes Physical Exam Triage Information Reviewed: Yes Appearance: Well-Appearing, No Pain Distress, Well-Nourished Vital Signs Reviewed: Yes Eye Exam: Normal Eyes: Positive: Conjunctiva Clear ENT: Positive: Hearing grossly normal, Pharynx normal, Other - TM x2 clear mmoist uvula midline No erythema, exudate Dental: Positive: Gross Decay/Caries @, Other: - #21 with temporary filling paste + TTP no erythema,no fluctuance, no bleeding gumline pt with other noted cavities Neck exam: Normal Neck: Positive: Supple, Nontender, No Lymphadenopathy Respiratory Exam: Normal Respiratory: Positive: Chest non-tender, Lungs clear, Normal breath sounds, No respiratory distress, No accessory muscle use Cardiovascular Exam: Normal Cardiovascular: Positive: RRR, No Murmur, Pulses Normal Abdominal Exam: Normal Musculoskeletal Exam: Normal Neurological Exam: Normal Neurological: Positive: Alert Psychological Exam: Normal Skin Exam: Normal Dental Complaint Course/Dx - Course Course Of Treatment: pt with pain on #21 tooth after a dental procedure with temp filling today. Pt has taken Ibuprofen x 1 dose and naproxyn x 1 without relief. Pt states dental clinic referred him to ED. Istop check: Reference #: [id number]. Pt noted to have several Rx for controlled substances. Pt noted to have previous Rx Dr. Lowery. I inquired with pt if previous use and stated 2 months ago for back pain. Other history was not discussed. I explained to pt would not give opiates at . recommended APAP - discussed dosing. precaution with NSAID motrin and Naproxyn. Offered topical lidocaine -pt states has at home and declined here. Pt requested block - explained to pt that block will wear off in 2-3 hours and pain will recurr - pt states understanding. ice to outside of jaw. recommend contact dentist tomorrow if pain persists. Pt comfortable and in agreement with plan - Differential Dx/Diagnosis Provider Diagnoses: dental pain Discharge - Discharge Plan Condition: Stable Disposition: HOME Patient Education Materials: Toothache (ED) Referrals: Gabo Smith MD [Primary Care Provider] - Additional Instructions: Take ibuprofen 800mg every 8 hours. take with food Take tylenol (acetaminophen) 1000mg every 6 hours for pain Okay to apply lidocaine, topical numbing medication, to the gumline every 4 hours as needed for discomfort Apply ice (wrapped in a towel) 20 minutes at time every 3-4 hours Call your dentist tomorrow morning if you continue to have poor pain control
[2017-05-06 20:05] VITALS: BP 154/93
[2017-05-06] MEDS ORDERED: Acetaminophen TAB* 325 MG PO ONE (20:23)
== END 2017-05-06 20:30 | disposition home or self-care (01) ==
LOC: UCCORT 19:08
DX: K08.89 Other specified disorders of teeth and supporting structures (principal); Z98.818 Other dental procedure status; K21.9 Gastro-esophageal reflux disease without esophagitis; F41.9 Anxiety disorder, unspecified; F17.220 Nicotine dependence, chewing tobacco, uncomplicated
CPT/HCPCS: 99212; A9270-GY; G0463

== ENCOUNTER 2017-07-23 15:23 | Emergency (ER) | payer SELFPAY ==
[2017-07-23 16:12] VITALS: BP 142/91
[2017-07-23] MEDS ORDERED: Amoxicillin/Clavulanate TAB* 875 MG PO ONE (16:39)
--- NOTE | 2017-07-23 17:26 | UC ---
Melita Gimenez Emily, scribed for Stephen Adams MD on 07/23/17 at 1636 . Bite Injury/Animal HPI - HPI Summary HPI Summary: This patient is a 37 year old M presenting to urgent care with a chief complaint of dog bite to inside of right elbow at 1150 today. The patient rates the pain 2/10 in severity. Symptoms aggravated by nothing. Symptoms alleviated by nothing. Pt reports that this is an unknown dog with unknown vaccinations. Medications reviewed. Allergies reviewed. - History of Current Complaint Chief Complaint: UCBiteInjury Stated Complaint: DOG BITE Time Seen by Provider: 07/23/17 16:28 Hx Obtained From: Patient Severity Currently: Mild Severity Initially: Mild Pain Intensity: 2 Pain Scale Used: 0-10 Numeric Onset/Duration: Sudden Onset, Lasting Hours, Still Present Type of Bite: Pet Has Animal Been Immunized?: Unknown Character: Puncture Aggravating Factor(s): Nothing Alleviating Factor(s): Nothing - Allergies/Home Medications Allergies/Adverse Reactions: Allergies Allergy/AdvReac Type Severity Reaction Status Date / Time No Known Allergies Allergy Verified 05/06/17 19:57 PMH/Surg Hx/FS Hx/Imm Hx Previously Healthy: No Cardiovascular History: Hypertension Neurological History: Seizures Other History Of: Negative For: HIV, Hepatitis B, Hepatitis C, Anticoagulant Therapy - Surgical History Surgical History: Yes Surgery Procedure, Year, 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 Right shoulder surgery Dec 2014 - Family History Known Family History: Positive: Hypertension Negative: Cardiac Disease, Diabetes - Social History Occupation: Employed Full-time Lives: With Family Alcohol Use: None Substance Use Type: None Smoking Status (MU): Heavy Every Day Tobacco Smoker Type: Cigarettes, Smokeless Tobacco Amount Used/How Often: 1 Can Per Day and Occasional Cigarette Length of Time of Smoking/Using Tobacco: Since Age "late 20's" Have You Smoked in the Last Year: Yes Household Exposure Type: Cigarettes - Immunization History Most Recent Influenza Vaccination: Not the 2017/2018 Season Review of Systems Constitutional: Other - Negative fever Skin: Other - Positive dog bite All Other Systems Reviewed And Are Negative: Yes Physical Exam - Summary Physical Exam Summary: General: well-appearing, no pain distress Skin: warm, color reflects adequate perfusion, dry. Puncture wound on the R AC. Erythema diameter of 3 cm around it. Tenderness at the site of the puncture wound, but no tenderness beyond 2 cm. R fifth finger there is a scab area 5 mm by 2 mm on the dorsal aspect. Partial thickness injury over the DIP Head: normal Eyes: EOMI, NAKUL ENT: normal Neck: supple, nontender Respiratory: CTA, breath sounds present Cardiovascular: RRR Abdomen: soft, nontender Bowel: present Musculoskeletal: No swelling. Good pulses. Good capillary refill. strength/ROM intact Neurological: sensory/motor intact, A&O x3 Psychological: affect/mood appropriate Triage Information Reviewed: Yes Vital Signs: Initial Vital Signs Temp 98.3 F 07/23/17 16:08 Pulse 79 07/23/17 16:08 Resp 16 07/23/17 16:08 BP 142/91 07/23/17 16:08 Pulse Ox 97 07/23/17 16:08 Vital Signs Reviewed: Yes Bite Injury Course/Dx - Course Course Of Treatment: THE MANAGER LINE OF THE DOG IS KNOWN. DOG BITE FORM FOR [facility] FILLED OUT. PATIENT BELIEVES HE IS UTD WITH HIS TETANUS; HE WILL CHECK WITH HIS PMD TOMORROW TO DETERMINE IF HE NEEDS ANOTHER TETANUS. - Differential Dx/Diagnosis Provider Diagnoses: DOG BITE RIGHT ARM AND RIGHT 5TH FINGER Discharge - Sign-Out/Discharge Documenting (check all that apply): Discharge/Admit/Transfer - Discharge Plan Condition: Stable Disposition: HOME Prescriptions: Amoxicillin/Clavulanate TAB* [Augmentin TAB 875*] 875 mg PO BID #19 tab Patient Education Materials: Animal Bite (ED) Referrals: Gabo Smith MD [Primary Care Provider] - - Billing Disposition and Condition Condition: STABLE Disposition: HOME The documentation as recorded by the Melita busch Emily accurately reflects the service I personally performed and the decisions made by , Stephen Adams MD.
[2017-07-23] MEDS ORDERED: Tetan/Diph/Pertus SYR(Tdap)* 0.5 ML SYR(BOOSTRIX) use SYR IM ONE (17:39)
== END 2017-07-23 18:10 | disposition home or self-care (01) ==
LOC: UCEAST 15:23
DX: S41.151A Open bite of right upper arm, initial encounter (principal); S61.256A Open bite of right little finger without damage to nail, initial encounter; W54.0XXA Bitten by dog, initial encounter; Y92.9 Unspecified place or not applicable; I10 Essential (primary) hypertension; R56.9 Unspecified convulsions; Z82.49 Family history of ischemic heart disease and other diseases of the circulatory system; F17.210 Nicotine dependence, cigarettes, uncomplicated
CPT/HCPCS: 90471; 90715; 99212; A9270-GY; G0463

== ENCOUNTER 2017-09-17 13:20 | Emergency (ER) | payer SELFPAY ==
[2017-09-17 14:05] VITALS: BP 139/92
--- NOTE | 2017-09-17 14:39 | UC ---
Shoulder Pain HPI - HPI Summary HPI Summary: Pt c/o right shoulde rpain that began 3 years ago. Pt had Rt shoulder surgery in [facility]. Pt states he reinjured right shoulder weeks to months after surgery and then follow ed up with orthopedic who did shoulder. Pt stated that he did go to PT only for short for period of time. Pt was then referred to Dr. Lowery for pain management for 2 years but stopped 6 months ago. Now states that right shoulder pain has worsened and he is on waiting list for return to pain management at Dr. Lowery and wants referral to orthopedic provider. - History of Current Complaint Chief Complaint: UCUpperExtremity Stated Complaint: RIGHT SHOULDER PAIN Time Seen by Provider: 09/17/17 14:22 Hx Obtained From: Patient Onset/Duration: Gradual Onset, Lasting Weeks - years, Still Present, Worse Since - "last month of two" Severity Initially: Mild Severity Currently: Moderate Location Of Pain: Is Discrete @ - right shoulder Pain Intensity: 6 Character: Sharp, Dull, Aching, Stiffness Aggravating Factor(s): Movement Alleviating Factor(s): Rest Associated Signs And Symptoms: Positive: Negative Related History: Dominant Hand Right - Risk Factors Non-Orthopedic Risk Factor: Negative DVT Risk Factors: Negative Septic Arthritis Risk Factor: Negative - Allergies/Home Medications Allergies/Adverse Reactions: Allergies Allergy/AdvReac Type Severity Reaction Status Date / Time No Known Allergies Allergy Verified 09/17/17 13:55 Home Medications: Home Medications Ibuprofen TAB* [Advil TAB*] 600 mg PO Q6H PRN 09/17/17 [History Confirmed ] PMH/Surg Hx/FS Hx/Imm Hx Previously Healthy: Yes Other History Of: Negative For: HIV, Hepatitis B, Hepatitis C, Anticoagulant Therapy - Surgical History Surgical History: Yes Surgery Procedure, Year, 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 Right shoulder surgery Dec 2014 - Family History Known Family History: Positive: Hypertension Negative: Cardiac Disease, Diabetes - Social History Occupation: Employed Full-time Lives: With Family Alcohol Use: None Substance Use Type: None Smoking Status (MU): Heavy Every Day Tobacco Smoker Type: Cigarettes, Smokeless Tobacco Amount Used/How Often: 1/2 PPD Length of Time of Smoking/Using Tobacco: Since Age "late 20's" Have You Smoked in the Last Year: Yes Household Exposure Type: Cigarettes - Immunization History Most Recent Influenza Vaccination: Not the Season Review of Systems Constitutional: Negative Skin: Negative Eyes: Negative ENT: Negative Respiratory: Negative Cardiovascular: Negative Gastrointestinal: Negative Genitourinary: Negative Motor: Negative Neurovascular: Negative Musculoskeletal: Arthralgia - right shoulder Neurological: Negative Psychological: Negative Is Patient Immunocompromised?: No All Other Systems Reviewed And Are Negative: Yes Physical Exam Triage Information Reviewed: Yes Appearance: Well-Appearing Vital Signs: Initial Vital Signs Temp 98.4 F 09/17/17 13:57 Pulse 77 09/17/17 13:57 Resp 16 09/17/17 13:57 BP 139/92 09/17/17 13:57 Pulse Ox 98 09/17/17 13:57 Eye Exam: Normal ENT Exam: Normal Dental Exam: Normal Neck exam: Normal Respiratory Exam: Normal Cardiovascular Exam: Normal Musculoskeletal Exam: Other Musculoskeletal: Positive: Other: - point tenderness at right AC joint Neurological Exam: Normal Psychological Exam: Normal Skin Exam: Normal Diagnostics - Radiology No standard instances Radiology Interpretation Completed By: Radiologist - FINDINGS: The bony structures, joint spaces, and soft tissues are normal for age. IMPRESSION: NO ACUTE BONY FINDINGS. Shoulder Course/Dx - Differential Dx/Diagnosis Differential Diagnosis/HQI/PQRI: Arthritis, Rotator Cuff Injury Provider Diagnoses: right shoulder pain Discharge - Sign-Out/Discharge Documenting (check all that apply): Patient Departure - Discharge Plan Condition: Stable Disposition: HOME Patient Education Materials: Shoulder Pain (ED) Referrals: Gabo Smith MD [Primary Care Provider] - Beena Higgins MD [Medical Doctor] - As Soon As Possible - Billing Disposition and Condition Condition: STABLE Disposition: Home
--- NOTE | 2017-09-17 15:20 | RAD ---
INDICATION: Atraumatic right shoulder pain COMPARISON: None TECHNIQUE: Routine frontal, Y and axial views were obtained. FINDINGS: The bony structures, joint spaces, and soft tissues are normal for age. IMPRESSION: NO ACUTE BONY FINDINGS.
== END 2017-09-17 15:18 | disposition home or self-care (01) ==
LOC: UCCORT 13:20
DX: M25.511 Pain in right shoulder (principal); F17.210 Nicotine dependence, cigarettes, uncomplicated
CPT/HCPCS: 99211; G0463

== ENCOUNTER 2017-09-19 14:44 | Emergency (ER) | payer OTHER ==
[2017-09-19 16:12] VITALS: BP 134/85
--- NOTE | 2017-09-19 17:40 | UC ---
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 Right shoulder surgery Dec 2014 - Family History Known Family History: Positive: Hypertension Negative: Cardiac Disease, Diabetes - Social History Alcohol Use: None Substance Use Type: None Smoking Status (MU): Heavy Every Day Tobacco Smoker Type: Cigarettes, Smokeless Tobacco Amount Used/How Often: 1/2 PPD Length of Time of Smoking/Using Tobacco: Since Age "late 20's" Have You Smoked in the Last Year: Yes Household Exposure Type: Cigarettes - Immunization History Most Recent Influenza Vaccination: Not the Season Physical Exam Vital Signs: Initial Vital Signs Temp 98.4 F 09/19/17 16:09 Pulse 70 09/19/17 16:09 Resp 18 09/19/17 16:09 BP 134/85 09/19/17 16:09 Pulse Ox 98 09/19/17 16:09 Discharge - Discharge Plan Referrals: Gabo Smith MD [Primary Care Provider] -
== END 2017-09-19 17:49 | disposition home or self-care (01) ==
LOC: UCEAST 14:44
DX: M25.511 Pain in right shoulder (principal); F17.210 Nicotine dependence, cigarettes, uncomplicated
CPT/HCPCS: 99212; G0463

== ENCOUNTER 2018-02-05 01:16 | Emergency (ER) | payer OTHER ==
[2018-02-05] MEDS ORDERED: Ketorolac INJ* 60 MG/2 ML VIAL IM ONE (03:16)
[2018-02-05] MEDS ORDERED: oxyCODONE/Acetamin 5/325 MG* TAB PO ONE (03:16)
--- NOTE | 2018-02-05 03:25 | ED ---
Throat Pain/Nasal Congestion - HPI Summary HPI Summary: This patient is a 37 year old M presenting to [facility] with a chief complaint of left lower molar dental pain since 18:00. The patient notes that he has an appointment to have the tooth extracted on 02/07/18. The patient rates the pain 10/10 in severity. Symptoms aggravated by nothing. Symptoms alleviated by nothing. - History of Current Complaint Chief Complaint: EDDentalPain Time Seen by Provider: 02/05/18 02:23 Hx Obtained From: Patient Onset/Duration: Gradual Onset, Lasting Hours, Still Present Severity: Moderate - Allergies/Home Medications Allergies/Adverse Reactions: Allergies Allergy/AdvReac Type Severity Reaction Status Date / Time No Known Allergies Allergy Verified 02/05/18 01:22 PMH/Surg Hx/FS Hx/Imm Hx Endocrine/Hematology History: Denies: Hx Anticoagulant Therapy, Hx Diabetes, Hx Thyroid Disease Cardiovascular History: Reports: Hx Hypertension - on meds Denies: Hx Congestive Heart Failure, Hx Deep Vein Thrombosis, Hx Myocardial Infarction, Hx Pacemaker/ICD Respiratory History: Denies: Hx Asthma, Hx Chronic Obstructive Pulmonary Disease (COPD), Hx Lung Cancer, Hx Pneumonia, Hx Pulmonary Embolism GI History: Denies: Hx Gall Bladder Disease, Hx Gastrointestinal Bleed, Hx Ulcer, Hx Urosepsis History: Denies: Hx Kidney Stones, Hx Renal Disease Sensory History: Denies: Hx Hearing Aid Neurological History: Reports: Hx Seizures - since age 15. 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 Right shoulder surgery Dec 2014 - Immunization History Date of Tetanus Vaccine: UTD Date of Influenza Vaccine: NO Infectious Disease History: No Infectious Disease History: Denies: Hx Clostridium Difficile, Hx Hepatitis, Hx Human Immunodeficiency Virus (HIV), Hx of Known/Suspected MRSA, Hx Shingles, Hx Tuberculosis, Hx Known/ Suspected VRE, Hx Known/Suspected VRSA, History Other Infectious Disease, Traveled Outside the [place] in Last 30 Days - Family History Known Family History: Positive: Hypertension Negative: Cardiac Disease, Diabetes - Social History Alcohol Use: None Substance Use Type: Reports: None Smoking Status (MU): Heavy Every Day Tobacco Smoker Type: Cigarettes, Smokeless Tobacco Amount Used/How Often: 1/2 PPD Length of Time of Smoking/Using Tobacco: Since Age "late 20's" Have You Smoked in the Last Year: Yes Review of Systems Negative: Fever Positive: Dental Pain - left lower molar Negative: Chest Pain Negative: Cough Negative: Vomiting All Other Systems Reviewed And Are Negative: Yes Physical Exam - Summary Physical Exam Summary: VITAL SIGNS: Reviewed. GENERAL: Patient is a well-developed and nourished MALE who is lying comfortable in the stretcher. Patient is not in any acute respiratory distress. HEAD AND FACE: No signs of trauma. No ecchymosis, hematomas or skull depressions. No sinus tenderness. EYES: PERRLA, EOMI x 2, No injected conjunctiva, no nystagmus. EARS: Hearing grossly intact. Ear canals and tympanic membranes are within normal limits. MOUTH: Oropharynx within normal limits. Decay of the left lower molar NECK: Supple, trachea is midline, no adenopathy, no JVD, no carotid bruit, no c- spine tenderness, neck with full ROM. CHEST: Symmetric, no tenderness at palpation LUNGS: Clear to auscultation bilaterally. No wheezing or crackles. CVS: Regular rate and rhythm, S1 and S2 present, no murmurs or gallops appreciated. ABDOMEN: Soft, non-tender. No signs of distention. No rebound no guarding, and no masses palpated. Bowel sounds are normal. EXTREMITIES: FROM in all major joints, no edema, no cyanosis or clubbing. NEURO: Alert and oriented x 3. No acute neurological deficits. Speech is normal and follows commands. SKIN: Dry and warm Triage Information Reviewed: Yes Vital Signs On Initial Exam: Initial Vitals Temp Pulse Resp BP Pulse Ox 97.5 F 72 16 154/103 97 02/05/18 01:17 02/05/18 01:17 02/05/18 01:17 02/05/18 01:17 02/05/18 01:17 Vital Signs Reviewed: Yes Diagnostics - Vital Signs Vital Signs Temp Pulse Resp BP Pulse Ox 02/05/18 03:22 20 02/05/18 03:13 59 162/99 97 02/05/18 01:17 97.5 F 72 16 154/103 97 - Laboratory Lab Statement: Any lab studies that have been ordered have been reviewed, and results considered in the medical decision making process. EENT Course/Dx - Course Course Of Treatment: This patient is a 37 year old M presenting to [facility] with a chief complaint of left lower molar dental pain since 18:00. The patient notes that he has an appointment to have the tooth extracted on 02/07/18. Physical exam reveals decay of the left lower molar. In the ED course the patient was given Toradol and oxycodone. Patient will be discharged home with prescription for Motrin and oxycodone with follow up from dentist and PCP. The patient is agreeable with this plan. - Diagnoses Provider Diagnoses: Pain, dental Discharge - Sign-Out/Discharge Documenting (check all that apply): Patient Departure - Discharge Plan Condition: Stable Disposition: HOME Prescriptions: Ibuprofen TAB* [Motrin TAB* 800 MG] 800 mg PO Q6H PRN #30 tab PRN Reason: Pain (Dental) oxyCODONE/Acetamin 5/325 MG* [Percocet 5/325 TAB*] 1 tab PO Q6H PRN #14 tab MDD 4 PRN Reason: Pain (Dental) Patient Education Materials: Toothache (ED) Referrals: Gabo Smith MD [Primary Care Provider] - 2 Days Additional Instructions: Follow up with dentist and primary care physician in 1-2 days. Return to the emergency department with any new or worsening symptoms. - Attestation Statements Document Initiated by Scribe: Yes Documenting Scribe: Afua Doss Provider For Whom Therese is Documenting (Include Credential): Delano Martínez MD Scribe Attestation: Afua Gimenez scribed for Delano Martínez MD on 02/05/18 at 0415. Status of Scribe Document: Ready
[2018-02-05 04:15] VITALS: BP 148/97
== END 2018-02-05 04:23 | disposition home or self-care (01) ==
LOC: ED 01:16
DX: K08.89 Other specified disorders of teeth and supporting structures (principal); I10 Essential (primary) hypertension; F17.210 Nicotine dependence, cigarettes, uncomplicated
CPT/HCPCS: 96372; 99212; 99282; A9270-GY; G0463; J1885